=== PATIENT | male | born 1965 | race Caucasian/White ===

== ENCOUNTER 2017-08-02 21:13 | Emergency (ER) | payer OTHER ==
--- NOTE | 2017-08-02 21:45 | RAD ---
LEFT TIBIA AND FIBULA TWO VIEWS: HISTORY: A 52-year-old male with a history of left lower leg injury following trauma. FINDINGS: There is a nondisplaced transverse fracture through the proximal fibular metaphysis region. The rose sánchez of the tibia and fibula appear intact. Calcaneal enthesophytes involving the Achilles and plan tar insertions. Anterior osteophyte off the distal anterior tibia. IMPRESSION: Nondisplaced transverse fracture through the proximal fibular tip. POS: [facility]
--- NOTE | 2017-08-02 21:47 | RAD ---
UPRIGHT PORTABLE CHEST ONE VIEW: HISTORY: A 52-year-old male with a history of chest pain following an injury from trauma/[facility]. FINDINGS: Monitor leads overly the chest. Heart size is within normal limits. Lungs are clear. No pneumothor ax, pleural effusion, or other acute process. IMPRESSION: No active intrathoracic disease. POS: [facility]
--- NOTE | 2017-08-02 21:49 | RAD ---
RIGHT ANKLE THREE VIEWS: HISTORY: A 52-year-old male with a history of a right ankle injury following trauma/[facility]. FINDINGS: Soft tissue swelling. Degenerative changes of the ankle joint with some calcaneal plantar and Achill es enthesophytes. No acute fracture or dislocation. Degenerative changes, particularly involving th e medial ankle. POS: [facility]
[2017-08-02 21:50] LABS: Band 3 % (5-11); Hemoglobin 17.2 g/dL (14.0-18.0); Lymphocytes 6 % (21-51); MDiff Complete? YES; Mean Corpuscular HGB CONC 34.1 g/dL (32.0-36.0); Mean Corpuscular Hemoglobin 32.8 pg (27.0-31.0); Mean Corpuscular Volume 96.1 fl (80.0-94.0); Monocytes 10 % (0-10); Neutrophil 81 % (42-75); PLT Morphology Comment Appears Adequate; Platelet Count 209 thou/uL (130-400); RBC Distribution Width 12.9 % (11.5-14.5); Red Blood Cell (RBC) Count 5.25 mill/uL (4.70-6.10); White Blood Cell (WBC) Count 18.2 thou/uL (4.8-10.8)
--- NOTE | 2017-08-02 21:50 | RAD ---
LEFT KNEE FOUR VIEWS: HISTORY: A 52-year-old male with a history of left knee pain following trauma/[facility]. FINDINGS: Hairline, nondisplaced, transverse fracture through the proximal tip of the fibula. No evidence for other fracture or dislocation. IMPRESSION: Nondisplaced horizontal transverse fracture through the proximal fibular tip. POS: [facility]
--- NOTE | 2017-08-02 21:58 | CT ---
BRAIN CT WITHOUT IV CONTRAST: HISTORY: A 52-year-old male with a history of injury following a trauma/[facility]. FINDINGS: No focal mass or midline shift. No intraaxial or extraaxial hemorrhage. There are sinus mucosal maggie nges involving the maxillary and ethmoid sinuses. The mastoids are clear. IMPRESSION: 1. No acute intracranial process. 2. No mass or bleed. 3. Sinus mucosal disease. Findings discussed with Dr. Cordero at 2150 hours. CODE CR POS: [facility]
[2017-08-02 22:02] LABS: ALT (SGPT) 40 U/L (8-55); AST (SGOT) 40 U/L (5-34); Albumin 4.3 g/dL (3.5-5.0); Alkaline Phosphatase 65 U/L (40-150); Anion Gap 15 mmol/L (10-20); BUN (Urea Nitrogen) 13 mg/dL (8.4-25.7); Bilirubin, Total 0.5 mg/dL (0.2-1.2); Calc. Creatinine Clearance 0 mL/min (70-130); Calcium 9.8 mg/dL (7.8-10.44); Carbon Dioxide 21 mmol/L (22-29); Chloride 103 mmol/L (98-107); Estimated GFR-MDRD 78; Globulin 3.7 g/dL (2.4-3.5); Glucose 102 mg/dL (70-105); Potassium 4.2 mmol/L (3.5-5.1); Sodium 135 mmol/L (136-145)
[2017-08-02 22:02] LABS: Troponin I Less than 0.010 ng/mL (< 0.028)
[2017-08-02 22:31] LABS: CKMB 20.1 ng/mL (0-6.6)
[2017-08-02] MEDS ORDERED: Morphine 4 MG/ML VIAL ONE (23:00)
[2017-08-02] MEDS ORDERED: Ketorolac Tromethamine 30 MG/ML VIAL ONE (23:00)
[2017-08-02 23:28] LABS: Bilirubin Negative (Negative); Blood, Urine Small (Negative); Clarity CLOUDY (Clear); Glucose, Urine (Dipstick) Negative (Negative); Leukocyte Negative (Negative); Nitrite Negative (Negative); Protein, Urine (Dipstick) 30 mg/dL (Neg-Trace); Specific Gravity, Urine 1.011 (1.002-1.036); Urobilinogen 0.2 mg/dL (0.2-1.0); pH, Urine 5.5 (5.0-9.0)
[2017-08-02 23:30] LABS: Bacteria/HPF None Seen HPF (None Seen); Pathc Cast-AUWi Flag 2.47 (0-2.49); Squamous Epithelial 0-3 HPF (0-3)
[2017-08-02 23:48] LABS: Hyaline Casts/LPF 0-3 HYALINE CAST LPF (0-3 Hyaline); Oval Fat Bodies/HPF None Seen HPF (None Seen); Renal Epithelial None Seen HPF (0-3); Sperm/HPF None Seen HPF (None Seen); Transitional Epithelial NONE SEEN HPF (0-3); Trichomonas/HPF None Seen HPF (None Seen); Yeast-All Forms None Seen HPF (None Seen)
== END 2017-08-03 00:30 | disposition home or self-care (01) ==
LOC: ERS 21:13
DX: S06.0X0A Concussion without loss of consciousness, initial encounter (principal); S82.832A Other fracture of upper and lower end of left fibula, initial encounter for closed fracture; S50.02XA Contusion of left elbow, initial encounter; S40.012A Contusion of left shoulder, initial encounter; I10 Essential (primary) hypertension; F17.210 Nicotine dependence, cigarettes, uncomplicated; Z79.899 Other long term (current) drug therapy; V29.9XXA Motorcycle rider (driver) (passenger) injured in unspecified traffic accident, initial encounter
CPT/HCPCS: 29515; 70450; 71045; 80053; 81003; 81015; 82553; 84484; 85025; 86850; 86900; 86901; 93005; 96374; 96375; 99406; J1885; J2270